=== PATIENT | male | born 1950 | race Caucasian/White ===

== ENCOUNTER → 2022-07-21 | Day surgery (SDC) | payer MEDICARE, OTHER ==
[~2022-07-21] VITALS: Ht 180.3 cm; Wt 96.2 kg
[~2022-07-21] MED LIST: ASPIRIN PO; BREO ELLIPTA 11 EACH INH; BRILINTA90 MG PO; CALCIUM 500 +1 EACH PO; CERTAVITE SENIOR PO; CRESTOR40 MG PO; DEXILANT60 MG PO; FARXIGA10 MG PO; HYDROCODON-ACE1 EAC2 PO; INCRUSE ELLI62.5 MCG INH; ISOSORBIDE DINI10 MG PO; ISOSORBIDE MONO60 MG PO; LASIX20 MG PO; LOPERAMIDE2 M1 PO; LOSARTAN POTASS25 MG PO; MONTELUKAST SOD10 MG PO; NIFEDIPINE ER30 MG PO; NITROGLYCERIN0.4 MG SL; NOVOLOG100 UNIT/2 INJ; OZEMPIC INJ; RANOLAZINE ER500 MG PO; TACROLIMUS0.5 MG PO; TOPROL XL 25 MG25 MG PO; TRESIBA100 UNIT/1 INJ; ZOLPIDEM TARTRA10 MG PO
== END | disposition home or self-care (01) ==
LOC: OR 06:24
PROVIDERS: Internal Medicine Gastroenterology
PROC: 0DBB8ZX Excision of Ileum, Via Natural or Artificial Opening Endoscopic, Diagnostic (ICD-10-PCS; 2022-07-21)
PROC: 0DBE8ZX Excision of Large Intestine, Via Natural or Artificial Opening Endoscopic, Diagnostic (ICD-10-PCS; 2022-07-21)
PROC: 0DBK8ZX Excision of Ascending Colon, Via Natural or Artificial Opening Endoscopic, Diagnostic (ICD-10-PCS; principal; 2022-07-21 07:30)
DX: D12.2 Benign neoplasm of ascending colon (principal); K52.9 Noninfective gastroenteritis and colitis, unspecified; K59.09 Other constipation; K21.9 Gastro-esophageal reflux disease without esophagitis; I25.10 Atherosclerotic heart disease of native coronary artery without angina pectoris; I10 Essential (primary) hypertension; E78.5 Hyperlipidemia, unspecified; E11.9 Type 2 diabetes mellitus without complications; J44.9 Chronic obstructive pulmonary disease, unspecified; F17.290 Nicotine dependence, other tobacco product, uncomplicated; E66.3 Overweight; Z68.29 Body mass index [BMI] 29.0-29.9, adult; Z95.5 Presence of coronary angioplasty implant and graft; Z95.1 Presence of aortocoronary bypass graft; Z88.8 Allergy status to other drugs, medicaments and biological substances; Z79.899 Other long term (current) drug therapy; Z90.49 Acquired absence of other specified parts of digestive tract; Z79.4 Long term (current) use of insulin; K64.1 Second degree hemorrhoids
CPT/HCPCS: 82962; J2704; J7040